=== PATIENT | male | born 1965 | race Caucasian/White ===

== ENCOUNTER 2017-05-16 21:50 | Emergency (ER) | payer MEDICAID ==
[~2017-05-16] VITALS: Ht 180.3 cm; Wt 104.3 kg
[2017-05-17] MEDS ORDERED: DEXAMETHASONE SOD PHOSPHATE 4 MG INJ IM ONE
[2017-05-17] MEDS ORDERED: DEXAMETHASONE SOD PHOSPHATE 4 MG INJ ONE ×2 (00:32→00:45)
[2017-05-17] MEDS ORDERED: PENICILLIN G BENZATHINE 2.4 MMU/4 ML DISP.SYRIN IM ONE ×2 (00:33)
--- NOTE | 2017-05-17 00:51 | NUR ---
Patient discharged to home in stable conditon. Written and verbal after care instructions given. Patient verbalizes understanding of instructions.
== END 2017-05-17 00:52 | disposition home or self-care (01) ==
LOC: ER 21:53
DX: M54.12 Radiculopathy, cervical region (principal); J02.0 Streptococcal pharyngitis; F17.200 Nicotine dependence, unspecified, uncomplicated
CPT/HCPCS: A4663; J1100